=== PATIENT | female | born 1995 | race American Indian/Alaskan Native ===

== ENCOUNTER 2019-05-17 14:00 | Emergency (ER) | payer SELFPAY ==
[2019-05-17 14:39] VITALS: BP 115/66
[2019-05-17] MEDS ORDERED: IBUPROFEN 600 MG TAB PO ONE ×2 (14:40→14:42)
--- NOTE | 2019-05-17 14:49 | Event Note ---
ED Screening Note Date of service: 05/17/19 ED Screening Note: This initial assessment/diagnostic orders/clinical plan/treatment(s) is/are subject to change based on patients health status, clinical progression and re- assessment by fellow clinical providers in the ED. Further treatment and workup at subsequent clinical providers discretion. Patient/guardian urged not to elope from the ED as their condition may be serious if not clinically assessed and managed. 24 yo female with c/o of dental pain x 2 days woke up today with facial swelling. Initial orders include: Given Motrin 600mg po
== END 2019-05-17 18:15 | disposition left against medical advice (07) ==
LOC: ED 14:00
DX: R51 Headache (principal); Z53.21 Procedure and treatment not carried out due to patient leaving prior to being seen by health care provider